=== PATIENT | male | born 1955 | race Caucasian/White ===

== ENCOUNTER 2023-01-28 17:08 | Emergency (ER) | payer MEDICARE, OTHER, SELFPAY ==
[2023-01-28 17:30] VITALS: BP 131/86; PULSE 72; RESP 20; TEMP 36.2; O2SAT 99
--- NOTE | 2023-01-28 17:48 | ED.URI ---
HPI - URI/Sore Throat General Chief Complaint: Upper Respiratory Infection Stated Complaint: cough,congestion Time Seen by Provider: 01/28/23 17:43 Source: patient and RN notes reviewed Mode of arrival: ambulatory Limitations: no limitations History of Present Illness HPI Narrative: Patient presents today with a 10 day history cough, rhinorrhea, pulse nasal drip. Denies congestion, shortness of breath, fever. No history of asthma or COPD. He has been taking NyQuil and cough drops with little relief. He is a nonsmoker. Related Data Home Medications Medication Instructions Recorded Confirmed atorvastatin 20 mg tablet mg 01/28/23 diclofenac sodium 75 mg mg PO 01/28/23 tablet,delayed release empagliflozin 25 mg tablet mg 01/28/23 (Jardiance) ergocalciferol (vitamin D2) 1,250 01/28/23 mcg (50,000 unit) capsule ferrous sulfate 325 mg (65 mg mg 01/28/23 iron) tablet (FeroSul) lisinopril 10 mg tablet mg 01/28/23 metformin 500 mg tablet,extended mg PO 01/28/23 release 24 hr omega-3 acid ethyl esters 1 gram PO 01/28/23 capsule semaglutide 7 mg tablet (Rybelsus) mg PO 01/28/23 sertraline 100 mg tablet mg 01/28/23 Allergies Allergy/AdvReac Type Severity Reaction Status Date / Time No Known Allergies Allergy Verified 01/28/23 17:41 Review of Systems Review of Systems: CONSTITUTIONAL: Denies body aches, fever, chills, or sweats. EYES: Denies visual changes, redness, or discharge. ENT: Denies congestion, sore throat, or otalgia.+ rhinorrhea, postnasal drip CARDIOVASCULAR: Denies chest pain, palpitations, or edema. RESPIRATORY: Denies dyspnea.+ cough GASTROINTESTINAL: Denies abdominal pain, nausea, vomiting, or diarrhea. GENITOURINARY: Denies dysuria or hematuria. SKIN: Denies rash, itching, or wounds. MUSCULOSKELETAL: Denies back pain, joint pain, or myalgia. NEUROLOGIC: Denies headache, numbness, tingling, or weakness. PSYCH: Denies depression or anxiety. [facility] Past Medical History Medical History (Updated 01/28/23 @ 17:53 by Ita Jolly, [facility], [place]) High cholesterol Hypertension Comments At time of signature, I have reviewed and agree with nursing past medical, surgical, social and family history unless otherwise noted. Please see nursing chart for further information. There is no relevant family history pertinent to the presenting complaint Exam Narrative: GENERAL: Mildly ill-appearing, well-nourished, and in no acute distress. HEAD: Normocephalic, atraumatic. EYES: EOMI. No redness or drainage. Conjunctivae normal. ENT: Mucous membranes pink and moist. Nares clear. No rhinorrhea. TMs normal bilaterally. Throat normal. Uvula midline. Nontender frontal and maxillary sinuses. NECK: Normal AROM. Supple. No lymphadenopathy. CHEST: No respiratory distress. Clear to auscultation. HEART: Regular rate and rhythm. No murmur appreciated. Normal peripheral pulses. EXTREMITIES: Normal range of motion. No edema. SKIN: Warm, dry, no rash. Capillary refill normal. Normal skin turgor. NEURO: No focal deficits. Alert and oriented x3. Gait steady. PSYCH: Normal affect. No signs of depression or anxiety. Course Course Level of Care: Express Care Visit Vital Signs Vital signs: Vital Signs Temperature 97.2 F L 01/28/23 17:30 Pulse Rate 72 01/28/23 17:30 Respiratory Rate 20 01/28/23 17:30 Blood Pressure 131/86 01/28/23 17:30 Pulse Oximetry 99 01/28/23 17:30 Oxygen Delivery Room Air 01/28/23 17:30 Temperature 97.2 F L 01/28/23 17:30 Pulse Rate 72 01/28/23 17:30 Respiratory Rate 20 01/28/23 17:30 Blood Pressure 131/86 01/28/23 17:30 Pulse Oximetry 99 01/28/23 17:30 Oxygen Delivery Room Air 01/28/23 17:30 Reviewed MDM - URI/Sore Throat MDM Narrative Medical decision making narrative: Patient has been diagnosed with sinusitis. Will be treated with Augmentin. Discussed [id number] treatment as well for his symptom
== END 2023-01-28 17:58 | disposition home or self-care (01) ==
PROVIDERS: Emergency Provider Nurse Practitioner; PCP Family Medicine
DX: J01.90 Acute sinusitis, unspecified (principal); E78.00 Pure hypercholesterolemia, unspecified; I10 Essential (primary) hypertension
CPT/HCPCS: 99203; G0463

== ENCOUNTER 2024-09-22 12:19 | Outpatient (CLI) | payer MEDICARE, OTHER, SELFPAY ==
--- NOTE | ~2024-09-22 | US_ITS ---
EXAM: RENAL ULTRASOUND HISTORY: R94.4 - Abnormal results of kidney function studies COMPARISON: None FINDINGS: RIGHT KIDNEY: 11.8 x 6.1 x 5.8 cm. The parenchyma of the right kidney is unremarkable in echogenicity and caliber. No hydronephrosis or bulky renal calculi. LEFT KIDNEY: 10.0 x 6.5 x 5.0 cm No hydronephrosis or renal calculi. The parenchyma of the left kidney is unremarkable in echogenicity and caliber. BLADDER: The bladder is only minimally distended, and otherwise unremarkable. IMPRESSION: No hydronephrosis or renal calculi. Unremarkable sonographic evaluation of the bilateral kidneys, as detailed above. Reviewed, dictated and finalized at location A. IMPRESSION: No hydronephrosis or renal calculi. Unremarkable sonographic evaluation of the bilateral kidneys, as detailed above .
== END 2024-09-22 12:20 | disposition home or self-care (01) ==
LOC: MICIMG 12:20
PROVIDERS: PCP Family Medicine; Visit Provider Internal Medicine Nephrology
DX: R94.4 Abnormal results of kidney function studies (principal)
CPT/HCPCS: 76775

== ENCOUNTER 2024-10-06 10:20 | Outpatient (CLI) | payer MEDICARE, OTHER, SELFPAY ==
--- NOTE | ~2024-10-06 | XR_ITS ---
Lumbosacral Spine: AP, oblique, and lateral views Clinical History: Pain Findings: The normal lordotic curve is maintained. No fracture or sublocation seen. There is severe d egenerative disc narrowing at L5-S1. There is severe facet arthropathy from L3 through S1. The sacroi liac joints are normally outlined. Impression: Moderate to advanced degenerative spondylosis of the lower lumbar spine, as detailed above. Reviewed, dictated and finalized at location . Impression: Moderate to advanced degenerative spondylosis of the lower lumbar spine, as det madeline above.
--- NOTE | ~2024-10-06 | XR_ITS ---
Thoracic spine: Clinical Indication: Back pain AP and lateral views were performed. No fracture is seen. There is normal alignment of the vertebrae. The intervertebral disc spaces appe ar normal. Paravertebral soft tissues appear normal. Impression: No significant abnormalities noted. Reviewed, dictated and finalized at [facility]. Impression: No significant abnormalities noted.
--- NOTE | ~2024-10-06 | XR_ITS ---
TMG bilateral Ordering provider: Perry Pennington, History: . Other specified disorders of temporomandibular joint . Comparison: None. FINDINGS: BONES: No acute fracture or dislocation. TEMPOROMANDIBULAR JOINTS: Normal. SOFT TISSUES: Normal. IMPRESSION: NO ACUTE OSSEOUS ABNORMALITY OF THE VISUALIZED MANDIBLE. No definite dislocation is seen in the temporomandibular joints. MRI is better for evaluation. Reviewed, dictated and finalized at location A.
== END 2024-10-06 10:21 | disposition home or self-care (01) ==
PROVIDERS: PCP Family Medicine; Visit Provider Family Medicine
DX: M54.6 Pain in thoracic spine (principal); M26.69 Other specified disorders of temporomandibular joint; M47.816 Spondylosis without myelopathy or radiculopathy, lumbar region
CPT/HCPCS: 70330; 72072; 72110